=== PATIENT | male | born 1990 | race Caucasian/White ===

== ENCOUNTER 2018-11-23 15:19 | Emergency (ER) | payer MEDICAID, OTHER ==
[2018-11-23] MEDS: HYDROCODONE/APAP (5/325) TAB PO (19:47)
== END 2018-11-23 19:56 | disposition home or self-care (01) ==
LOC: FTE 15:19
DX: S69.92XA Unspecified injury of left wrist, hand and finger(s), initial encounter (principal); V00.831A Fall from motorized mobility scooter, initial encounter; Y92.488 Other paved roadways as the place of occurrence of the external cause
CPT/HCPCS: 73130; 73130-LT; 99283-25